=== PATIENT | female | born 1995 | race Asian ===

== ENCOUNTER 2016-11-17 09:49 | Emergency (ER) | payer OTHER ==
[~2016-11-17] VITALS: Ht 160 cm; Wt 74.0 kg
[~2016-11-17 09:49] MED LIST: NAPR-685 PO; PHEN177L2 PO; PREN-39 PO
[2016-11-17 09:53] VITALS: Ht 160 cm; Wt 74.0 kg
[2016-11-17 10:18] LABS: URINE BLOOD (Dip) POC Negative (NEGATIVE)
--- NOTE | 2016-11-17 14:54 | ERD ---
ER Documentation Chief Complaint Date/Time DATE: 11/17/16 TIME: 14:50 Chief Complaint VOMITING AND HEADACHE X 1 MONTH HPI This patient is a 21-year-old female presenting to the emergency department with complaints of intermittent morning emesis followed by headache ongoing for the past month. Symptoms are currently mild. The patient's last menstrual cycle was September 03, 2016. She denies vaginal discharge, fevers, chills, vaginal bleeding, suprapubic pain, or other symptoms. ROS All systems reviewed and are negative except as per history of present illness. Medications Home Meds Active Scripts Phenylephrine/Dm/Acetaminop/Gg (Mucinex Oatv-Zkx-Pfgwcnuuqp Liquid) 177 Ml Liquid, 10 ML PO Q8 for 7 Days, ML Prov:BENJAMIN,ERASTO P [employer] 11/11/15 Naproxen* (Naproxen*) 375 Mg Tablet, 375 MG PO BID, #20 TAB Prov:JENNIFER ESPINOSA DO 01/23/15 Reported Medications Vits W-Ca,Fe,Fa(<1MG) ( Vitamins) 1 Tab Tablet, 1 TAB PO DAILY 01/02/15 Allergies Allergies: Coded Allergies: No Known Allergy (Unverified , 11/17/16) PMhx/Soc Medical and Surgical Hx: pt denies Medical Hx, pt denies Surgical Hx History of Surgery: No Anesthesia Reaction: No Hx Neurological Disorder: No Hx Respiratory Disorders: No Hx Cardiac Disorders: No Hx Psychiatric Problems: No Hx Miscellaneous Medical Probl: No Hx Alcohol Use: No Hx Substance Use: No Hx Tobacco Use: No Smoking Status: Never smoker Physical Exam Vitals Vital Signs Date Time Temp Pulse Resp B/P Pulse Ox O2 Delivery O2 Flow Rate FiO2 11/17/16 09:53 97.8 98 18 126/68 99 Physical Exam Const: Nontoxic, well-appearing female in no acute distress. Head: Atraumatic Eyes: Normal Conjunctiva ENT: Normal External Ears, Nose and Mouth. Neck: Full range of motion..~ No meningismus. Resp: Clear to auscultation bilaterally Cardio: Regular rate and rhythm, no murmurs Abd: Soft, non tender, non distended. Normal bowel sounds Skin: No petechiae or rashes Back: No midline or flank tenderness Ext: No cyanosis, or edema Neur: Awake and alert Psych: Normal Mood and Affect Results 24 hrs Laboratory Tests Test 11/17/16 10:23 Bedside Urine pH (LAB) 6.5 Bedside Urine Protein (LAB) 2+ Bedside Urine Glucose (UA) Negative Bedside Urine Ketones (LAB) Negative Bedside Urine Blood Negative Bedside Urine Nitrite (LAB) Negative Bedside Urine Leukocyte Esterase (L Negative Procedures/MDM 21-year-old female presents to the emergency department with complaints of morning sickness and headaches intermittently. Physical examination is benign. test was positive. Urine dip was negative for signs of infection. Results were shared with the patient. She was advised to have close follow-up with the primary care physician in follow-up for care. She understood the discharge plan and diagnosis. All questions and concerns were addressed. Strict ER return precautions were discussed. Departure Diagnosis: Primary Impression: and not yet delivered Condition: Fair Patient Instructions: , New Dx Additional Instructions: Follow up with your PCP within the next 1-3 days for a repeat evaluation. If you require a referral to a specialist, your Primary Care Provider may be able to provide this for you. In most patient cases, a referral is not required. If you have further questions regarding this matter, please ask your Primary Care Provider. Return the the emergency department immediately if symptoms worsen or change. If you have any questions regarding medications, ask your pharmacist or us before you leave. If any adverse reactions, occur while taking your medications, discontinue the treatment and return to the emergency department immediately. If any new or worsening symptoms, uncontrolled fevers, or other unexplained symptoms occur, return to the emergency department immediately. Take your medications as directed, and complete the entire course of treatment. SABA GORE PA-C Nov 17, 2016 14:54
[2016-11-22 16:12] LABS: URINE BLOOD (Dip) POC Negative (NEGATIVE)
== END 2016-11-17 10:32 | disposition home or self-care (01) ==
LOC: FTE 09:49
DX: R11.10 Vomiting, unspecified (principal); R51 Headache; Z33.1 Pregnant state, incidental
CPT/HCPCS: 81003; Z7502; 99282

== ENCOUNTER 2017-06-06 10:30 | Inpatient (IN) | END 2017-06-09 17:39 | disposition home or self-care (01) | DRG 775 ==